=== PATIENT | female | born 1965 | race Caucasian/White ===

== ENCOUNTER 2016-10-23 06:02 | Inpatient (IN) | payer BC ==
[2016-10-18 09:40] LABS: BASOPHILS 0.3 %; BASOPHILS ABSOLUTE 0.03 10/3/uL (0.0-0.16); EOSINOPHILS 1.4 %; EOSINOPHILS ABSOLUTE 0.14 10/3/uL (0.0-0.53); HEMATOCRIT 46.2 % (36.0-48.0); HEMOGLOBIN 16.1 g/dL (12.0-16.0); IMMATURE GRANULOCYTES 0.3 %; IMMATURE GRANULOCYTES ABSOLUTE 0.03 10/3/uL (0.0-0.11); LYMPHOCYTES 24.9 %; LYMPHOCYTES ABSOLUTE 2.52 10/3/uL (0.67-4.30); MEAN CORPUS HGB CONC 34.8 g/dL (32.0-36.0); MEAN CORPUSCULAR VOLUME 88.8 fL (80-100); MONOCYTES 4.8 %; MONOCYTES ABSOLUTE 0.49 10/3/uL (0.21-1.20); NEUTROPHILS 68.3 %; NEUTROPHILS ABSOLUTE 6.93 10/3/uL (2.02-8.40); PLATELET COUNT 270 10/3/uL (150-400); RBC DISTRIBUTION WIDTH 13.1 % (12.0-16.0); WHITE BLOOD CELLS 10.1 10/3/uL (4.5-10.5)
[2016-10-18 09:42] LABS: MANUAL DIFF NO %
[2016-10-18 10:00] LABS: A/G RATIO 1.2 (0.7-1.9); ALBUMIN 3.8 G/DL (3.5-5.0); ALKALINE PHOSPHATASE 62 U/L (45-117); BUN (BLOOD UREA NITROGEN) 14 MG/DL (6-23); CALCIUM, SERUM 9.2 MG/DL (8.5-10.4); CHLORIDE, SERUM 100 MMOL/L (96-112); CO2 (CARBON DIOXIDE) 26 MMOL/L (24-34); CREATININE 0.89 MG/DL (0.55-1.02); GFR AFRICAN AMERICAN 88 ML/MIN (>=60); GFR NON AFRICAN AMERICAN 76 ML/MIN (>=60); GLOBULIN 3.3 G/DL (2.5-4.1); GLUCOSE, SERUM 168 MG/DL (60-99); POTASSIUM, SERUM 3.6 MMOL/L (3.5-5.3); SGOT(AST) 11 U/L (5-40); SGPT(ALT) 25 U/L (5-65); SODIUM, SERUM 139 MMOL/L (135-148); TOTAL BILIRUBIN 0.6 MG/DL (0-1.2); TOTAL PROTEIN 7.1 G/DL (6.0-8.5)
[2016-10-18 10:01] LABS: INTERNATIONAL NORMAL RATI 1.1 UNITS (-); PARTIAL THROMBO TIME 29.3 SEC (22.5-37.2); PROTIME (NOT ORD) 14.2 SEC (12.0-14.5)
--- NOTE | ~2016-10-23 | HP ---
History And Physical [address] [place]. [address] NAME: LARISA RUSH : 69 STATUS : ADM IN PAT#: [id number] AGE: 51 ADM/REG DATE : 10/23/16 MR#: [id number] REPORT SERV DATE: 10/23/16 DICTATED BY: ULISES ELY JR. DATE: 10/23/16 REPORT STATUS : Draft TRANSCRIBED BY: JOSE J DATE: 10/23/16 DATE OF ADMISSION: 10/23/2016 CHIEF COMPLAINT: Retroperitoneal mass. HISTORY OF PRESENT ILLNESS: This is a 51-year-old female. She has been found to have a retroperitoneal mass in evaluation for hematuria. Biochemical assessment showed no evidence of any infection or any tumor and exploration for resection is indicated. She is admitted for the above procedure. PAST MEDICAL HISTORY: Remarkable for history of obesity, asthma, hypertension, reflux disease, and hematuria. PAST SURGICAL HISTORY: Remarkable for surgery for endometriosis and hysterectomy. MEDICATIONS: Are listed and reviewed. ALLERGIES: TO SOME PAIN MEDICINE AND SULFA. FAMILY HISTORY: Noncontributory. SOCIAL HISTORY: Tobacco or alcohol, none. REVIEW OF SYSTEMS: GENERAL: No fever, chills, or weight loss. HEENT: Negative. PULMONARY: Negative except for asthma. CARDIAC: Negative. GI: No significant symptoms. : As above. Musculoskeletal: Negative. ENDOCRINE: Negative. HEME: Negative. PSYCHIATRIC: Negative. PHYSICAL EXAMINATION: GENERAL: Exam shows a healthy-appearing obese female. VITAL SIGNS: The temperature is afebrile, blood pressure is 135/78, heart rate is 74, and respirations 16. HEENT: The head and neck exam shows pupils are equal and reactive. There are no icteric changes. Neck is supple. There is no mass or thyromegaly. LUNGS: Clear bilaterally. CARDIOVASCULAR: Normal S1 and S2 without any murmur. ABDOMEN: Soft. There is a large midline incision. There is no palpable mass. EXTREMITIES: Show no clubbing, cyanosis, or edema. History And Physical [address] [address] NAME: LARISA RUSH : 69 STATUS : ADM IN PAT#: [id number] AGE: 51 ADM/REG DATE : 10/23/16 MR#: [id number] REPORT SERV DATE: 10/23/16 DICTATED BY: ULISES ELY JR. DATE: 10/23/16 REPORT STATUS : Draft TRANSCRIBED BY: JOSE J DATE: 10/23/16 NEUROLOGIC: Alert and oriented. No focal findings. Appropriate affect. IMPRESSION: Retroperitoneal tumor. PLAN: We will proceed with admission and resection. Details of the risks of the operation were discussed with the patient and her family. They understand and agree. RY/JOSE J Ulises Ely Jr., M.D. / [id number] CC: Consuelo Vanessa Jr., M.D.
--- NOTE | ~2016-10-23 | OP ---
Record Of Operation [facility] [address] [place]. [address] NAME: LARISA RUSH : 69 STATUS : ADM IN PAT#: [id number] AGE: 51 ADM/REG DATE : 10/23/16 MR#: [id number] REPORT SERV DATE: 10/23/16 DICTATED BY: ULISES GRANT JR. DATE: 10/23/16 REPORT STATUS : Draft TRANSCRIBED BY: MODL DATE: 10/23/16 DATE OF PROCEDURE: 10/23/2016 SURGEON: Ulises Grant M.D. [employer] SUPERVISOR: Thomas Velasquez. PROCEDURE: Resection of retroperitoneal tumor 6.5 cm. PREOPERATIVE DIAGNOSIS: Retroperitoneal tumor. 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 ANESTHESIA: General. INDICATIONS: This patient has been found to have a mass of retroperitoneum on imaging done as evaluation of hematuria. There was initially some concern that this represented a neuroendocrine tumor with even concern for an extraadrenal pheochromocytoma. Biochemical studies did not show elevation of metanephrines. Exploration for resection of the mass was indicated for a definitive diagnosis. FINDINGS: The patient did have scarring from previous surgery including hernia repair with mesh in place. Intraabdominally, there was noted to be peritoneal abnormality. There was a mass in the left side of the retroperitoneum as noted previously just lateral to the aorta pushing the ureter laterally. It was resected completely, measured 6.5 cm and frozen section showed a probable carcinoma. Final characterization deferred. No other significant abnormalities were encountered. Specifically there was no evidence of any palpable adenopathy in the iliac regions or the remainder of this retroperitoneal area. This was somewhat difficult though in view of the extensive retroperitoneal fat which was present. DESCRIPTION OF PROCEDURE: With adequate general anesthesia, the patient was placed in the supine position. The abdomen was prepped and draped sterilely. A midline incision was made. The dissection was carried down sharply through the subcutaneous tissues. The fascia and perineum were opened. The underlying adhesions were dissected sharply. Mesh was divided. The peritoneal cavity was thoroughly explored and opened. Then the left colon was mobilized. The lateral peritoneal attachments were divided and this was mobilized towards the midline which exposed the retroperitoneum and then the mass was identified. It was from the Gerota fascia and this was dissected free of surrounding tissues securing small bleeders with electrocautery clips and the LigaSure device. The left ureter was identified and was lateral to the lesion and with tedious dissection was completed, it was dissected free of the surrounding tissues and removed. It was submitted to pathology with no results. Hemostasis was assured also with Surgiflo. Additional areas were palpated. No additional findings were encountered. Then, the wound was closed by approximating the fascia with a running 0 PDS suture, subcutaneous tissues with 3-0 Vicryl, and skin with subcuticular Monocryl. Negative pressure LOLY dressing was placed. The patient left the operating room in satisfactory condition. Record Of Operation [address] [address] NAME: LARISA RUSH : 69 STATUS : ADM IN [facility]#: [id number] AGE: 51 ADM/REG DATE : 10/23/16 MR#: [id number] REPORT SERV DATE: 10/23/16 DICTATED BY: ULISES GRANT JR. DATE: 10/23/16 REPORT STATUS : Draft TRANSCRIBED BY: JOSE J DATE: 10/23/16 ESTIMATED BLOOD LOSS: 100 mL. RY/JOSE J Ulises Grant Jr., M.D. / [id number] CC: Consuelo Vanessa Jr., M.D.
[~2016-10-23 06:02] MED LIST: ACET500CAP PO; ADVIL PO; AUG875 PO; BEN25 PO; BREO ELLIPTA 21 EACH INH; COZ50 PO; EEMT PO; HYDROCHLOROT12.5 MG PO; NASACORTAQ NAS; PRILO PO; PROAIRRESP INH; SINGULAIR1 PO; TUMSROLL PO; VITAMIN D31000 UNIT PO; ZYRTEC ALLGY10 MG PO
[2016-10-23 11:05] LABS: BASOPHILS 0.2 %; BASOPHILS ABSOLUTE 0.04 10/3/uL (0.0-0.16); EOSINOPHILS 0.1 %; EOSINOPHILS ABSOLUTE 0.03 10/3/uL (0.0-0.53); HEMATOCRIT 42.6 % (36.0-48.0); HEMOGLOBIN 14.9 g/dL (12.0-16.0); IMMATURE GRANULOCYTES 0.4 %; IMMATURE GRANULOCYTES ABSOLUTE 0.08 10/3/uL (0.0-0.11); LYMPHOCYTES 8.2 %; LYMPHOCYTES ABSOLUTE 1.76 10/3/uL (0.67-4.30); MEAN CORPUSCULAR HEMOGLOB 31.8 pg (26.0-34.0); MEAN PLATELET VOLUME 8.6 fL (9.2-13.0); MONOCYTES 3.2 %; MONOCYTES ABSOLUTE 0.68 10/3/uL (0.21-1.20); NEUTROPHILS 87.9 %; NEUTROPHILS ABSOLUTE 18.81 10/3/uL (2.02-8.40); PLATELET COUNT 265 10/3/uL (150-400); RBC DISTRIBUTION WIDTH 13.2 % (12.0-16.0); RED CELL COUNT 4.68 10/6/uL (4.0-5.6)
[2016-10-23 11:06] LABS: MANUAL DIFF NO %; WHITE BLOOD CELLS 21.4 10/3/uL (4.5-10.5)
[2016-10-23 11:20] LABS: CHLORIDE, SERUM 106 MMOL/L (96-112); CO2 (CARBON DIOXIDE) 25 MMOL/L (24-34); CREATININE 0.64 MG/DL (0.55-1.02); GFR AFRICAN AMERICAN 121 ML/MIN (>=60); GFR NON AFRICAN AMERICAN 105 ML/MIN (>=60); GLUCOSE, SERUM 165 MG/DL (60-99); POTASSIUM, SERUM 3.5 MMOL/L (3.5-5.3); SODIUM, SERUM 140 MMOL/L (135-148)
[2016-10-23 11:25] LABS: BUN (BLOOD UREA NITROGEN) 10 MG/DL (6-23); CALCIUM, SERUM 8.2 MG/DL (8.5-10.4)
[2016-10-24 05:26] LABS: BASOPHILS 0 %; EOSINOPHILS 0.1 %; EOSINOPHILS ABSOLUTE 0.01 10/3/uL (0.0-0.53); HEMOGLOBIN 13.2 g/dL (12.0-16.0); IMMATURE GRANULOCYTES 0.4 %; IMMATURE GRANULOCYTES ABSOLUTE 0.05 10/3/uL (0.0-0.11); LYMPHOCYTES 11.6 %; LYMPHOCYTES ABSOLUTE 1.56 10/3/uL (0.67-4.30); MEAN CORPUS HGB CONC 34.6 g/dL (32.0-36.0); MEAN CORPUSCULAR HEMOGLOB 31.7 pg (26.0-34.0); MEAN CORPUSCULAR VOLUME 91.6 fL (80-100); MEAN PLATELET VOLUME 9.1 fL (9.2-13.0); MONOCYTES 9.6 %; NEUTROPHILS 78.3 %; NEUTROPHILS ABSOLUTE 10.57 10/3/uL (2.02-8.40); PLATELET COUNT 262 10/3/uL (150-400); RBC DISTRIBUTION WIDTH 13.3 % (12.0-16.0); RED CELL COUNT 4.17 10/6/uL (4.0-5.6); WHITE BLOOD CELLS 13.5 10/3/uL (4.5-10.5)
[2016-10-24 05:30] LABS: HEMATOCRIT 38.2 % (36.0-48.0); MANUAL DIFF NO %
[2016-10-24 05:57] LABS: A/G RATIO 1.1 (0.7-1.9); ALBUMIN 3.1 G/DL (3.5-5.0); BUN (BLOOD UREA NITROGEN) 8 MG/DL (6-23); CHLORIDE, SERUM 106 MMOL/L (96-112); CO2 (CARBON DIOXIDE) 27 MMOL/L (24-34); CREATININE 0.62 MG/DL (0.55-1.02); GFR AFRICAN AMERICAN 123 ML/MIN (>=60); GFR NON AFRICAN AMERICAN 106 ML/MIN (>=60); GLOBULIN 2.9 G/DL (2.5-4.1); POTASSIUM, SERUM 3.7 MMOL/L (3.5-5.3); SGOT(AST) 17 U/L (5-40); SGPT(ALT) 22 U/L (5-65); SODIUM, SERUM 140 MMOL/L (135-148); TOTAL BILIRUBIN 0.5 MG/DL (0-1.2)
[2016-10-24 05:59] LABS: ALKALINE PHOSPHATASE 49 U/L (45-117); GLUCOSE, SERUM 119 MG/DL (60-99)
[2016-10-25 05:16] LABS: BASOPHILS 0.3 %; BASOPHILS ABSOLUTE 0.03 10/3/uL (0.0-0.16); EOSINOPHILS 1.2 %; EOSINOPHILS ABSOLUTE 0.14 10/3/uL (0.0-0.53); HEMOGLOBIN 12.1 g/dL (12.0-16.0); IMMATURE GRANULOCYTES 0.4 %; IMMATURE GRANULOCYTES ABSOLUTE 0.04 10/3/uL (0.0-0.11); LYMPHOCYTES 31.3 %; LYMPHOCYTES ABSOLUTE 3.56 10/3/uL (0.67-4.30); MEAN CORPUS HGB CONC 33.6 g/dL (32.0-36.0); MEAN CORPUSCULAR HEMOGLOB 31.6 pg (26.0-34.0); MEAN PLATELET VOLUME 8.8 fL (9.2-13.0); MONOCYTES 8.2 %; MONOCYTES ABSOLUTE 0.93 10/3/uL (0.21-1.20); NEUTROPHILS 58.6 %; NEUTROPHILS ABSOLUTE 6.69 10/3/uL (2.02-8.40); PLATELET COUNT 238 10/3/uL (150-400); RBC DISTRIBUTION WIDTH 14.1 % (12.0-16.0); RED CELL COUNT 3.83 10/6/uL (4.0-5.6); WHITE BLOOD CELLS 11.4 10/3/uL (4.5-10.5)
[2016-10-25 05:20] LABS: MANUAL DIFF NO %
[2016-10-25 05:28] LABS: BUN (BLOOD UREA NITROGEN) 5 MG/DL (6-23); CALCIUM, SERUM 7.4 MG/DL (8.5-10.4); CHLORIDE, SERUM 110 MMOL/L (96-112); CO2 (CARBON DIOXIDE) 25 MMOL/L (24-34); CREATININE 0.56 MG/DL (0.55-1.02); GFR AFRICAN AMERICAN 127 ML/MIN (>=60); GFR NON AFRICAN AMERICAN 109 ML/MIN (>=60); GLUCOSE, SERUM 116 MG/DL (60-99); POTASSIUM, SERUM 3.8 MMOL/L (3.5-5.3); SODIUM, SERUM 142 MMOL/L (135-148)
[2016-10-26 05:21] LABS: BASOPHILS 0.2 %; BASOPHILS ABSOLUTE 0.03 10/3/uL (0.0-0.16); EOSINOPHILS 2.4 %; EOSINOPHILS ABSOLUTE 0.35 10/3/uL (0.0-0.53); HEMATOCRIT 39.2 % (36.0-48.0); HEMOGLOBIN 12.9 g/dL (12.0-16.0); IMMATURE GRANULOCYTES 0.3 %; IMMATURE GRANULOCYTES ABSOLUTE 0.04 10/3/uL (0.0-0.11); LYMPHOCYTES 22.4 %; LYMPHOCYTES ABSOLUTE 3.21 10/3/uL (0.67-4.30); MEAN CORPUS HGB CONC 32.9 g/dL (32.0-36.0); MEAN CORPUSCULAR HEMOGLOB 30.4 pg (26.0-34.0); MEAN CORPUSCULAR VOLUME 92.2 fL (80-100); MEAN PLATELET VOLUME 8.8 fL (9.2-13.0); MONOCYTES 5.5 %; MONOCYTES ABSOLUTE 0.79 10/3/uL (0.21-1.20); NEUTROPHILS 69.2 %; NEUTROPHILS ABSOLUTE 9.92 10/3/uL (2.02-8.40); PLATELET COUNT 300 10/3/uL (150-400); RBC DISTRIBUTION WIDTH 14.1 % (12.0-16.0); RED CELL COUNT 4.25 10/6/uL (4.0-5.6); WHITE BLOOD CELLS 14.3 10/3/uL (4.5-10.5)
[2016-10-26 05:27] LABS: MANUAL DIFF NO %
[2016-10-26 05:39] LABS: BUN (BLOOD UREA NITROGEN) 6 MG/DL (6-23); CALCIUM, SERUM 8.3 MG/DL (8.5-10.4); CHLORIDE, SERUM 105 MMOL/L (96-112); CO2 (CARBON DIOXIDE) 27 MMOL/L (24-34); CREATININE 0.62 MG/DL (0.55-1.02); GFR AFRICAN AMERICAN 123 ML/MIN (>=60); GFR NON AFRICAN AMERICAN 106 ML/MIN (>=60); GLUCOSE, SERUM 95 MG/DL (60-99); POTASSIUM, SERUM 3.9 MMOL/L (3.5-5.3); SODIUM, SERUM 140 MMOL/L (135-148)
[2016-10-27 05:36] LABS: BUN (BLOOD UREA NITROGEN) 6 MG/DL (6-23); CALCIUM, SERUM 7.7 MG/DL (8.5-10.4); CHLORIDE, SERUM 108 MMOL/L (96-112); CO2 (CARBON DIOXIDE) 27 MMOL/L (24-34); CREATININE 0.56 MG/DL (0.55-1.02); GFR AFRICAN AMERICAN 127 ML/MIN (>=60); GFR NON AFRICAN AMERICAN 109 ML/MIN (>=60); GLUCOSE, SERUM 112 MG/DL (60-99); POTASSIUM, SERUM 3.8 MMOL/L (3.5-5.3); SODIUM, SERUM 142 MMOL/L (135-148)
[2016-10-27 05:48] LABS: BASOPHILS 0.3 %; BASOPHILS ABSOLUTE 0.03 10/3/uL (0.0-0.16); EOSINOPHILS ABSOLUTE 0.34 10/3/uL (0.0-0.53); HEMATOCRIT 37.6 % (36.0-48.0); HEMOGLOBIN 12.6 g/dL (12.0-16.0); IMMATURE GRANULOCYTES 0.5 %; IMMATURE GRANULOCYTES ABSOLUTE 0.06 10/3/uL (0.0-0.11); LYMPHOCYTES 27.2 %; LYMPHOCYTES ABSOLUTE 3.09 10/3/uL (0.67-4.30); MEAN CORPUS HGB CONC 33.5 g/dL (32.0-36.0); MEAN CORPUSCULAR HEMOGLOB 31.7 pg (26.0-34.0); MEAN CORPUSCULAR VOLUME 94.5 fL (80-100); MEAN PLATELET VOLUME 8.8 fL (9.2-13.0); MONOCYTES 6.6 %; MONOCYTES ABSOLUTE 0.75 10/3/uL (0.21-1.20); NEUTROPHILS 62.4 %; NEUTROPHILS ABSOLUTE 7.08 10/3/uL (2.02-8.40); PLATELET COUNT 299 10/3/uL (150-400); RBC DISTRIBUTION WIDTH 13.7 % (12.0-16.0); RED CELL COUNT 3.98 10/6/uL (4.0-5.6); WHITE BLOOD CELLS 11.4 10/3/uL (4.5-10.5)
[2016-10-27 05:55] LABS: MANUAL DIFF NO %
[2016-10-27] MEDS ORDERED: PCET PO (09:40)
[2016-10-27] MEDS ORDERED: ZOFRAN4 PO (09:42)
[2016-10-27] MEDS ORDERED: REG PO (09:42)
[2016-10-27 11:23] LABS: ASCORBIC ACID (UR NOT ORDER) NEG (NEG); BILIRUBIN, URINE NEGATIVE (NEG); KETONE, URINE NEGATIVE (NEG); LEUKOCYTE ESTERASE(NOT OR SMALL (NEG); WBC (NOT ORDERED) (RFLEX) 19 (0-5)
== END 2016-10-27 12:13 | disposition home or self-care (01) | DRG 828 ==
LOC: SDC/OF 06:02 → 5SO 15:37
PROVIDERS: Specialist
PROC: 0DBW0ZZ Excision of Peritoneum, Open Approach (ICD-10-PCS; principal; 2016-10-23 07:45)
DX: C48.0 Malignant neoplasm of retroperitoneum (principal); I10 Essential (primary) hypertension; R31.9 Hematuria, unspecified; E66.9 Obesity, unspecified; K21.9 Gastro-esophageal reflux disease without esophagitis; J45.909 Unspecified asthma, uncomplicated; Z90.710 Acquired absence of both cervix and uterus; Z88.0 Allergy status to penicillin; Z88.2 Allergy status to sulfonamides
CPT/HCPCS: 36415; 71020; 80048; 80053; 81001; 82962; 83735; 85025; 85610; 85730; 86850; 86900; 86901; 87077; 87086; 87186; 88309; 88313; 88331; 88341; 88342; 88360; 93005; 94640; A9270-GY; C9113; J0690; J1170; J1885; J2250; J2270; J2405; J2550; J2710; J2795; J3010